=== PATIENT | female | born 1985 | race African-American/Black ===

== ENCOUNTER 2020-08-19 07:52 | Day surgery (SDC) | payer MEDICAID ==
[~2020-08-19] VITALS: Ht 157.5 cm; Wt 104.0 kg
[2020-08-19] MEDS ORDERED: SODIUM CHLORIDE 0.9% 1,000 ML IV ONE (08:15)
[2020-08-19 08:41] LABS: BASOPHILS % 0.4 % (0.0-2.0); HEMATOCRIT. 32.4 % (36.0-48.0); HEMOGLOBIN. 10.6 g/dL (12.0-16.0); MEAN CORPUSCULAR HEMOGLOBIN 27.4 pg (28.0-32.0); MEAN CORPUSCULAR VOLUME 83.9 fL (81.0-99.0); MEAN PLATELET VOLUME 7.8 fl (7.4-10.4); MONOCYTES % 2.9 % (2.0-8.0); NEUTROPHILS % 83.7 % (40.0-76.0); PLATELET 321 x1000/uL (130-400); RED BLOOD CELL COUNT 3.86 mill/uL (4.2-5.4); RED CELL DISTRIBUTION WIDTH 13.9 % (11.6-14.6)
[2020-08-19 08:48] LABS: CHLORIDE 107 mEq/L (98-107)
[2020-08-19 08:50] LABS: PROTHROMBIN TIME 10.3 sec (9.6-11.0)
[2020-08-19 08:54] LABS: BG BASE EXCESS -4.6 mmol/L (-2.0-2.0); BG CARBOXYHEMOGLOBIN 0.3 % (0.5-1.5); BG DEOXYHEMOGLOBIN 2.8 % (0.0-5.0); BG FRACTION INSPIRED OXYGEN 21; BG HCO3 ACT 19.4 mmol/L (22.0-26.0); BG METHEMOGLOBIN 0.3 % (0.0-1.5); BG OXYGEN SATURATION 97.2 % (92.0-98.5); BG OXYHEMOGLOBIN 96.6 % (94.0-97.0); BG PCO2 31.9 mmHg (35.0-45.0); BG PH 7.402 (7.350-7.450); BG PO2 101.3 mmHg (75.0-100.0); BG SAMPLE SITE LEFT BRACHIAL; BG TOTAL HEMOGLOBIN 10.5 g/dL (12.0-18.0); BG VENT MODE ROOM AIR
[2020-08-19 09:12] LABS: B-HCG QUANTITATIVE 1408 mIU/mL (<3)
[2020-08-19] MEDS ORDERED: ONDANSETRON HCL 4MG/2ML INJ IV ONE (09:15)
[2020-08-19] MEDS ORDERED: FENTANYL CITRATE/PF 50MCG/ML 2ML VIAL IV ONE (09:15)
[2020-08-19] MEDS ORDERED: DEXT 5%/LR + PITOCIN 20UNITS/L 1,000 ML IV ONE (09:15)
[2020-08-19] MEDS ORDERED: OXYTOCIN 30 UNITS in DEXT 5%/LACTATED RINGERS 1,000 ML IV ONE (09:15)
[2020-08-19 12:39] LABS: HEMATOCRIT 34.3 % (36.0-48.0); HEMOGLOBIN 11.3 g/dL (12.0-16.0); MEAN CORPUSCULAR VOLUME 84.8 fL (81.0-99.0); PLATELET 256 x1000/uL (130-400); RED BLOOD CELL COUNT 4.05 mill/uL (4.2-5.4)
[2020-08-19] MEDS ORDERED: ONDANSETRON HCL 4MG/2ML INJ ONE (13:09)
[2020-08-19] MEDS ORDERED: FENTANYL CITRATE/PF 50MCG/ML 2ML VIAL ONE ×2 (13:09→13:10)
[2020-08-19] MEDS ORDERED: DEXAMETHASONE 4MG/ML 1ML VIAL ONE (13:09)
[2020-08-19] MEDS ORDERED: MIDAZOLAM HCL 2 MG/2 ML VIAL ONE (13:09)
[2020-08-19] MEDS ORDERED: PROPOFOL 200MG/20ML VIAL IV ONE (13:09)
[2020-08-19] MEDS ORDERED: HYDROMORPHONE HCL/PF 2MG/ML CPJ IV PRN (13:45)
[2020-08-19] MEDS ORDERED: MEPERIDINE HCL/PF 25MG/ML CPJ IV PRN (13:45)
[2020-08-19] MEDS ORDERED: ONDANSETRON HCL 4MG/2ML INJ IV PRN (13:45)
[2020-08-19] MEDS ORDERED: LABETALOL 5MG/ML SYR 20 MG/4 ML SYRINGE IV PRN (13:45)
[2020-08-19 14:10] VITALS: BP 125/82
[2020-08-19] MEDS ORDERED: IBUP-2030 MT (14:47)
== END 2020-08-19 15:30 | disposition home or self-care (01) ==
LOC: ER 08:14 → EDBEDREQ 09:04 → ENRESERV 10:37 → CANRESERV 10:37 → ER 12:00 → OR 13:05 → CANBEDREQ 17:12
PROVIDERS: ATTEND Obstetrics & Gynecology
DX: O03.4 Incomplete spontaneous abortion without complication (principal); Z79.899 Other long term (current) drug therapy
CPT/HCPCS: 36415; 36600; 59812; 76801; 76817; 80053; 82375; 82805; 84702; 85025; 85027; 85610; 86850; 86900; 86901; 86920; 87426; 88305; 93005; 96361; 96365; 96375; 96376; 99291; J1100; J1170; J2250; J2405; J2704; J3010; J7030; J7121; J2590; P9016